=== PATIENT | male | born 1945 | race Caucasian/White ===

== ENCOUNTER → 2018-10-20 | Outpatient (CLI) | payer MEDICARE ==
--- NOTE | 2018-10-20 09:38 | Diagnostic Imaging Report ---
CLINICAL INDICATION: Followup fracture. Patient fell on ice 2 weeks ago and tried to catch himself with his arm. EXAM: X-ray of the left shoulder, 3 views including a scapular Y view. COMPARISON: None. FINDINGS: There is a fracture of the proximal humeral diaphysis with roughly 1.5 cm of anterior displacement and 0.9 cm medial displacement of the distal fracture fragment. The glenohumeral joint is intact. The remainder of the left shoulder shows no other significant abnormality. IMPRESSION: Displaced fracture of the proximal humeral surgical neck/metaphysis. Dictated by: Dictated on workstation # [id number]
== END ==
LOC: RAD FS 09:14
PROVIDERS: ATTEND Nurse Practitioner
DX: S42.222G 2-part displaced fracture of surgical neck of left humerus, subsequent encounter for fracture with delayed healing (principal); W00.9XXD Unspecified fall due to ice and snow, subsequent encounter
CPT/HCPCS: 73030

== ENCOUNTER 2018-10-31 12:38 | Outpatient (CLI) | payer MEDICARE ==
[~2018-10-31] VITALS: Ht 177.8 cm; Wt 76.2 kg
== END 2018-10-31 13:31 | disposition home or self-care (01) ==
LOC: PREOP 12:38
PROVIDERS: ATTEND Surgery
DX: Z01.818 Encounter for other preprocedural examination (principal)

== ENCOUNTER 2018-11-06 07:32 | Day surgery (SDC) | payer MEDICARE ==
[~2018-11-06] VITALS: Ht 177.8 cm; Wt 76.2 kg
[2018-11-06] MEDS ORDERED: LACTATED RINGERS 1,000 ML IV PRN (07:50)
--- NOTE | 2018-11-06 07:54 | Progress Note-Pre Operative ---
Pre-Operative Progress Note H&P Reviewed The H&P was reviewed, patient examined and no changes noted. Date Seen by Provider: Nov 06, 2018 Time Seen by Provider: 07:54 Date H&P Reviewed: Nov 06, 2018 Time H&P Reviewed: 07:54 Pre-Operative Diagnosis: right inguinal hernia LYNDSAY LYON DO Nov 06, 2018 07:54
[2018-11-06 08:00] VITALS: BP 134/85
[2018-11-06] MEDS ORDERED: ceFAZolin 2 GM IV Premixed 50 ML IV ONE (08:00)
[2018-11-06] MEDS ORDERED: BUP/EPI 0.5% 1:200,000 (SENSORCAINE) 30 ML VIAL ONE (08:24)
[2018-11-06] MEDS ORDERED: LIDOCAINE 1% INJ 20 ML 20 ML VIAL ONE (08:25)
[2018-11-06] MEDS ORDERED: MIDAZOLAM 2 MG/2 ML (VERSED) VIAL ONE (09:26)
[2018-11-06] MEDS ORDERED: fentaNYL INJECTION 100 MCG/2 ML AMP ONE (09:26)
[2018-11-06] MEDS ORDERED: SEVOFLURANE (ULTANE) 15 ML INHAL SOLN ONE ×3 (09:31→10:08)
[2018-11-06] MEDS ORDERED: proPOfol 200 MG/20 ML (DIPRIVAN) VIAL IV ONE (09:31)
[2018-11-06] MEDS ORDERED: ROCURONIUM 10 MG/ML 5 ML SYRINGE IV ONE (09:31)
[2018-11-06] MEDS ORDERED: LIDOCAINE PF 2% 5 ML (XYLOCAINE) VIAL ONE ×2 (09:32→10:08)
[2018-11-06] MEDS ORDERED: NEOSTIGMINE 1 MG/ML 5 ML SYRINGE ONE (09:58)
[2018-11-06] MEDS ORDERED: GLYCOPYRROLATE 0.2 MG/ML (ROBINUL) 2 ML VIAL ONE (09:58)
[2018-11-06] MEDS ORDERED: ONDANSETRON 4 MG/2 ML (SDV) Z0FRAN ONE (09:58)
[2018-11-06] MEDS ORDERED: DEXAMETHASONE 10 MG/ML (DECADRON) 1 ML VIAL ONE (09:58)
--- NOTE | 2018-11-06 10:19 | Progress Note-Post Operative ---
Post-Operative Progess Note Surgeon (s)/Slope Runner (s) Surgeon LYNDSAY LYON DO Slope Runner: Dr. Luo Pre-Operative Diagnosis right inguinal hernia Post-Operative Diagnosis incarcerated right inguinal hernia Procedure & Operative Findings Date of Procedure 11/06/18 Procedure Performed/Findings right incarcerated inguinal hernia repair Anesthesia Type gen Estimated Blood Loss Estimated blood loss (mL): min Specimens/Packing Specimens Removed hernia sac LYNDSAY LYON DO Nov 06, 2018 10:19
[2018-11-06] MEDS ORDERED: DOCU-143 PO (10:20)
[2018-11-06] MEDS ORDERED: ACHD5005 PO (10:20)
[2018-11-06] MEDS ORDERED: PHENYLEPHRINE 100 MCG/ML 10 ML (ANESTHESIA) SYR ONE (10:20)
--- NOTE | 2018-11-06 10:22 | Discharge Inst-Simple/Standard ---
Discharge Inst-Standard Discharge Medications New, Converted or Re-Newed RX: RX on Chart Patient Instructions/Follow Up Plan of Care/Instructions/FU: 2-3 weeks Amanuel Activity as Tolerated: No Discharge Diet: Regular Diet Other Inst to Patient Follow up Appt: Make appointment for 2-3 weeks. Instructions: No lifting greater than 10 pounds. No strenuous activity. May shower in 24 hours, no tub bath or soaking. Use incentive spirometer at home as directed. No Smoking Skin/Wound Care: You have special glue over incision it will fall off on its own. Symptoms to Report: Appetite Changes, Extremity Discoloration, Numbness/Tingling, Swelling Increased , Bleeding Excessive, Eyesight Changes, Pain Increased, Urine Color Change, Constipation(Persistent), Fever over 101 degree F, Pain/Pressure in chest, Urinating Difficulty, Cough Up/Vomit Blood, Heart Beat Irreg/Pounding, Pain/ Pressure in jaw, Vaginal Bleeding Increase, Cramps in feet or legs, Lightheadedness, Pain/Pressure in shoulder, Diarrhea(Persistent), Memory Changes Suddenly, Questions/Concerns, Weight gain consecutive days, Dizziness/ Fainting, Nausea/Vomiting, Shortness of Breath, Weight gain over 2 pounds If questions or concerns contact your physician Or seek help at emergency department. LYNDSAY LYON DO Nov 06, 2018 10:22
[2018-11-06] MEDS ORDERED: morphine INJ 10 MG/ML 1ML (SYR OR VIAL) IVP ONE (10:45)
[2018-11-06 11:25] VITALS: BP 126/69
[2018-11-06 11:55] VITALS: BP 127/82
[2018-11-06 12:25] VITALS: BP 128/78
[2018-11-06 13:00] VITALS: BP 128/78
--- NOTE | 2018-11-06 13:03 | Anesthesia-General Post-Op ---
General Patient Condition Mental Status/LOC: Same as Preop Cardiovascular: Satisfactory Nausea/Vomiting: Absent Respiratory: Satisfactory Pain: Controlled Complications: Absent Post Op Complications Complications None Follow Up Care/Instructions Patient Instructions None needed. Anesthesia/Patient Condition Patient Condition Patient is doing well, no complaints, stable vital signs, no apparent adverse anesthesia problems. No complications reported per nursing. LALITA JEROME CRNA Nov 06, 2018 13:03
--- NOTE | 2018-11-07 04:22 | OPERATIVE REPORT ---
DATE OF SERVICE: 11/06/2018 PREOPERATIVE DIAGNOSIS: Right inguinal hernia. POSTOPERATIVE DIAGNOSIS: Right incarcerated inguinal hernia, indirect. PROCEDURE: Right incarcerated inguinal hernia repair. SURGEON: Lyndsay Vital DO. INGOT CAR OPERATOR: Dr. Luo, assisted in retraction, dissection and closure. ANESTHESIA: General. ESTIMATED BLOOD LOSS: Minimal. COMPLICATIONS: None. INDICATIONS: The patient is a 73-year-old male with a right inguinal hernia. risks and benefits of having repair performed. He understands and wishes to proceed. Consent was signed on the chart. DESCRIPTION OF PROCEDURE: The patient was taken to the operating suite, was prepped and draped in sterile fashion. Timeout was performed. Local anesthetic was used to infiltrate the right groin area and also had an ilioinguinal nerve block. A 15-blade scalpel was used to make a skin incision and dissection was taken down to the external oblique. The external oblique fascia was then opened down through the external ring. The spermatic cord was then dissected around bluntly. A Alcides drain was placed around it. The cremaster muscles were then divided and a hernia sac was found and dissected off of the cord. This was then opened. There was fat and small bowel able to be visualized and the fat was adherent and incarcerated into the hernia site. The fat was able to be dissected off of the hernia sac, therefore it was divided and then the proximal portion was then able to be dissected off the hernia sac and placed back within the abdomen. The hernia sac was then suture ligated and this then retracted into the abdomen. ProGrip mesh was then secured to Julian's ligament and then incorporated around the spermatic cord. Adequate coverage was present. There was no direct defect. The wound was irrigated with copious amounts of irrigation. The external oblique was then closed, recreating the external ring using 3-0 Vicryl in running fashion. The subcutaneous tissues were then reapproximated using 3-0 Vicryl. Skin was then closed using 4-0 Vicryl in a running subcuticular fashion. The abdomen was then washed and dried and Skin Affix was placed over the incisions. The patient tolerated the procedure well without complications, was taken to recovery room in stable condition. Job ID: [id number] DocumentID: [id number] Dictated Date: 11/06/2018 20:49:11 [employer]er Process Cheese Date: 11/07/2018 04:21:48 Dictated By: LYNDSAY VITAL DO
== END 2018-11-06 13:00 | disposition home or self-care (01) ==
LOC: SDC 07:32
PROVIDERS: ATTEND Surgery
DX: K40.30 Unilateral inguinal hernia, with obstruction, without gangrene, not specified as recurrent (principal); F17.210 Nicotine dependence, cigarettes, uncomplicated
CPT/HCPCS: 87081; 94664

== ENCOUNTER → 2018-11-25 | Outpatient (CLI) | payer MEDICARE ==
[~2018-11-25] MED LIST: ACHD5005 PO; DOCU-143 PO
--- NOTE | 2018-11-25 11:52 | Diagnostic Imaging Report ---
INDICATION: Fracture, followup. TECHNIQUE: Three views of the left shoulder were performed. CORRELATION STUDY: 10/20/2018. FINDINGS: The displaced fracture involving the proximal left humerus is again demonstrated. There is continued medial and likely anterior displacement of approximately half the width of the bone. The alignment is generally stable with a significant amount of impaction present. There is slight sclerosis and some bony resorption present; however, the fracture lines are still well visualized and there is no significant bridging callus formation. The visualized soft tissues are unremarkable. IMPRESSION: Displaced and impacted fracture of the proximal left humerus, relatively stable in alignment, with very little interval healing present. Dictated by: Dictated on workstation # [id number]
--- NOTE | 2018-11-25 12:20 | Diagnostic Imaging Report ---
INDICATION: Fracture, shoulder pain. TECHNIQUE: Two views of the left shoulder at 11:42 AM. CORRELATION STUDY: Earlier this same day as well as 10/20/2018. FINDINGS: There is again demonstration of an impacted fracture of the proximal humeral shaft and neck. Slight anterior displacement, slightly greater than the width of the cortex, is present. The severity of anterior displacement may be slightly less pronounced from the prior study. The visualized soft tissues are unremarkable. IMPRESSION: Impacted mildly angulated and displaced left proximal humerus fracture. Dictated by: Dictated on workstation # [id number]
== END ==
LOC: RAD FS 10:54
PROVIDERS: ATTEND Nurse Practitioner
DX: S42.222G 2-part displaced fracture of surgical neck of left humerus, subsequent encounter for fracture with delayed healing (principal)
CPT/HCPCS: 73030

== ENCOUNTER → 2018-12-09 | Outpatient (CLI) | payer MEDICARE ==
--- NOTE | 2018-12-09 09:35 | Diagnostic Imaging Report ---
INDICATION: Followup left shoulder fracture COMPARISON STUDY: Left shoulder from November the . FINDINGS: Two views of the left shoulder demonstrate no change in position or alignment of the fracture just below the humeral neck. Early calcified callus formation is present. IMPRESSION: There is early healing of the proximal left humeral shaft fracture. There has been no change in position or alignment. Dictated by: Dictated on workstation # [id number]
== END ==
LOC: RAD FS 08:32
PROVIDERS: ATTEND Nurse Practitioner
DX: S42.222G 2-part displaced fracture of surgical neck of left humerus, subsequent encounter for fracture with delayed healing (principal)
CPT/HCPCS: 73030